=== PATIENT | male | born 1960 | race Caucasian/White ===

== ENCOUNTER 2016-06-30 14:11 | Emergency (ER) | payer MEDICAID ==
[2016-06-30] MEDS ORDERED: AMMONIA AROMATIC 1 EACH AMP IH ONE ×2 (14:12→14:17)
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
[2016-06-30 14:20] VITALS: TEMP 98.4
[2016-06-30 14:42] VITALS: BP 128/74; PULSE 74; RESP 14; O2SAT 94
== END 2016-06-30 14:30 | disposition home or self-care (01) ==
LOC: EDUNIT#
DX: G40.909 Epilepsy, unspecified, not intractable, without status epilepticus (principal)

== ENCOUNTER 2016-07-12 13:21 | Emergency (ER) | payer MEDICAID ==
[2016-07-12] MEDS ORDERED: LORazepam 2 MG/ML INJ ONE (13:38)
[2016-07-12] MEDS ORDERED: NS 1,000 ML IV ONE (13:39)
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
[2016-07-12] MEDS ORDERED: LORazepam 2 MG/ML INJ IVP ONE (13:40)
[2016-07-12] MEDS ORDERED: KETAMINE 500 MG/10 ML VIAL IM ONE (13:40)
[2016-07-12 13:54] VITALS: BP 120/46; PULSE 72; RESP 16; TEMP 98.1; O2SAT 96
== END 2016-07-12 13:54 | disposition home or self-care (01) ==
LOC: EDUNIT#
DX: G40.209 Localization-related (focal) (partial) symptomatic epilepsy and epileptic syndromes with complex partial seizures, not intractable, without status epilepticus (principal); F17.200 Nicotine dependence, unspecified, uncomplicated
CPT/HCPCS: 82947-QW; J2060

== ENCOUNTER 2018-02-19 21:15 | Emergency (ER) | payer OTHER ==
[2018-02-19 21:57] LABS: PLATELET COUNT 237 10^3/uL (150-400)
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
[2018-02-19] MEDS ORDERED: NS IV ONE (22:49)
[2018-02-19] MEDS ORDERED: VALPROATE SODIUM IV ONE (22:49)
[2018-02-19] MEDS ORDERED: DIVALPROEX NA 500 MG TAB PO ONE ×3 (23:02→23:15)
[2018-02-19 23:33] VITALS: BP 111/86
== END 2018-02-19 23:44 ==
LOC: EDUNIT#
DX: G40.909 Epilepsy, unspecified, not intractable, without status epilepticus (principal); Z91.14 Patient's other noncompliance with medication regimen
CPT/HCPCS: G0480